=== PATIENT | female | born 1955 | race Hispanic/Latino ===

== ENCOUNTER 2017-05-05 05:48 | Day surgery (SDC) | payer MEDICARE ==
--- NOTE | 2017-05-05 07:26 | Anesthesia Day of Surgery ---
Anesthesia Day of Surgery - Day of Surgery Patient Examined: Yes Patient H&P Reviewed: Yes Patient is NPO: Yes
--- NOTE | 2017-05-05 07:27 | Anesthesia Consultation ---
Anesthesia Consult and Med Hx Date of service: 05/05/17 - Airway Anesthetic Teeth Evaluation: Dentures ROM Head & Neck: Adequate Mental/Hyoid Distance: Adequate Mallampati Class: Class II Intubation Access Assessment: Probably Good - Pulmonary Exam CTA: Yes - Cardiac Exam Cardiac Exam: RRR - Pre-Operative Health Status ASA Pre-Surgery Classification: ASA3 Proposed Anesthetic Plan: MAC - Pulmonary Hx Smoking: Yes Hx Asthma: Yes (hasnt used inhaler in months) - Cardiovascular System Hx Hypertension: Yes (1 year) Hx Coronary Artery Disease: Yes (Carotid Artery stenosis) - Central Nervous System Hx Back Pain: Yes (takes Oxy every day) Hx Psychiatric Problems: Yes - Endocrine Hx Renal Disease: Yes (Stage 1) Hx Non-Insulin Dependent Diabetes: Yes - Hematic Hx Anemia: No - Other Systems Hx Alcohol Use: No Hx Substance Use: No Hx Cancer: No Hx Obesity: Yes
[2017-05-05] MEDS ORDERED: WATER FOR IRRIG STERILE IR ONE (07:30)
[2017-05-05] MEDS ORDERED: DIPRIVAN 10 MG/ML IV ONE (07:33)
--- NOTE | 2017-05-05 07:37 | Discharge Summary ---
Providers - Providers Date of discharge: 05/05/17 Attending physician: MIGUEL MOSQUEDA Hospitalization Condition: Good Procedures: egd Disposition: DC-01 TO HOME OR SELFCARE Core Measure Documentation - Palliative Care Palliative Care/ Comfort Measures: Not Applicable - Core Measures Any of the following diagnoses?: none Exam - Physical Exam Narrative exam: unchanged from pre-op - Constitutional Vitals: Temp Pulse Resp BP Pulse Ox 98.4 F 88 14 122/57 93 05/05/17 07:28 05/05/17 07:28 05/05/17 07:28 05/05/17 07:28 05/05/17 07:28 Plan Activity: no restrictions Weight Bearing Status: Full Weight Bearing Diet: regular Follow up with: JOYA LI [Other] - 7 Days
--- NOTE | 2017-05-05 07:44 | Operative Report ---
Operative Report Operative Report: OPERATIVE REPORT - EGD DATE 05/05/17 SURGERY: Upper endoscopy. SURGEON: Batsheva Bryan M.D. PRE OP DX: dyspepsia POST OP DX: hiatal hernia TYPE OF ANESTHESIA: MAC. ESTIMATED BLOOD LOSS: None. COMPLICATIONS: None. SPECIMENS REMOVED: None. FINDINGS: 1. Small hiatal hernia. 2. Otherwise, normal esophagus, stomach and first portion of duodenum. INDICATIONS:INDICATION FOR PROCEDURE: Patient is a 61-year-old female with a long history of morbid obesity. She is planned to have a weight loss procedure and is here for preoperative planning EGD. PROCEDURE DETAILS: After consent was reviewed, patient was taken back to the operating room where patient was placed in the left lateral decubitus position and a bite block was placed in the mouth. After a time-out was called, MAC anesthesia was initiated. I then passed the endoscope into her oropharynx, into her esophagus, visualized the entire esophagus, which was all within normal limits. I then visualized the stomach and the first portion of the duodenum and there were no abnormalities I could clearly visualize. I then retroflexed the scope in the stomach and visualized the hiatus and I could see a small hiatal hernia. I then desufflated the stomach and removed the endoscope. Patient tolerated procedure well and was transferred to recovery room in good and stable condition.
[2017-05-05] MEDS ORDERED: NACL 0.9% 1000 ML 1,000 ML IV SCH (08:00)
[2017-05-05 08:55] VITALS: BP 113/53
--- NOTE | 2017-05-05 11:45 | Post Anesthesia Evaluation ---
- Post Anesthesia Evaluation Patient Participated: Yes Airway Patent: Yes Stable Respiratory Function: Yes Nausea/Vomiting: No Temp > 96.8F: Yes Pain Manageable: Yes Adequeate Hydration: Yes Anesthesia Complications: No Block Receding Appropriately: Not Applicable Patient on Ventilator: No
== END 2017-05-05 05:49 | disposition home or self-care (01) ==
LOC: GIO 05:48
PROVIDERS: ATTEND Surgery
DX: R10.13 Epigastric pain (principal); K44.9 Diaphragmatic hernia without obstruction or gangrene; E66.01 Morbid (severe) obesity due to excess calories; E11.43 Type 2 diabetes mellitus with diabetic autonomic (poly)neuropathy; I10 Essential (primary) hypertension; I25.10 Atherosclerotic heart disease of native coronary artery without angina pectoris; K31.84 Gastroparesis; J44.9 Chronic obstructive pulmonary disease, unspecified; Z98.890 Other specified postprocedural states; Z98.84 Bariatric surgery status; Z87.891 Personal history of nicotine dependence; Z90.710 Acquired absence of both cervix and uterus; Z90.49 Acquired absence of other specified parts of digestive tract; Z96.659 Presence of unspecified artificial knee joint; Z68.37 Body mass index [BMI] 37.0-37.9, adult; Z88.6 Allergy status to analgesic agent; Z88.2 Allergy status to sulfonamides
CPT/HCPCS: 43235; J2704; J7030

== ENCOUNTER 2017-05-06 08:00 | Inpatient (IN) | payer MEDICARE ==
[~2017-05-06 08:00] MED LIST: WATER FOR IRRIG STERILE IR ONE
[2017-05-06] MEDS ORDERED: NACL BACTERIOSTATIC INFILTRATI ONE (09:54)
[2017-05-06] MEDS ORDERED: APRESOLINE IV PRN (10:16)
[2017-05-06] MEDS ORDERED: REGLAN IV PRN (10:16)
[2017-05-06] MEDS ORDERED: DILAUDID IV PRN ×2 (10:16→10:56)
[2017-05-06] MEDS ORDERED: ZOFRAN IV PRN (10:16)
[2017-05-06] MEDS ORDERED: NORCO PO PRN (10:16)
[2017-05-06] MEDS ORDERED: MORPHINE IV PRN (10:16)
[2017-05-06] MEDS ORDERED: D50W (25GM) Syringe IV PRN (10:22)
[2017-05-06] MEDS ORDERED: XYLOCAINE 1% 20 mL ONE ×2 (10:46→12:01)
[2017-05-06] MEDS ORDERED: MARCAINE-EPI/PF 0.5%-1:200,000 INFILTRATI ONE ×3 (10:47→12:57)
[2017-05-06 10:50] LABS: Basophils % (Auto) 0.5 % (0.0-1.8); Eosinophils % (Auto) 2.3 % (0.0-4.3); Hematocrit 29.1 % (30.3-42.9); Hemoglobin 8.8 gm/dl (10.1-14.3); Mean Corpuscular HGB Conc 30 % (30-34); Platelet Count 278 K/mm3 (140-440); Red Blood Count 4.47 M/mm3 (3.65-5.03); Red Cell Distribution Width 19.1 % (13.2-15.2); White Blood Count 5.2 K/mm3 (4.5-11.0)
[2017-05-06 10:53] LABS: Bacteria,Urine 4+ /HPF (Negative); Bilirubin,Urine NEG (Negative); Blood,Urine NEG (Negative); Ketones,Urine NEG (Negative); Leukocyte Esterase,Urine LG (Negative); Mucus,Urine FEW /HPF; Nitrite,Urine NEG (Negative); Urobilinogen,Urine < 2.0 mg/dL (<2.0)
[2017-05-06 10:54] LABS: Anion Gap 17 mmol/L; BUN/Creatinine Ratio 23; Blood Urea Nitrogen 14 mg/dL (7-17); Carbon Dioxide 28 mmol/L (22-30); Chloride 100.8 mmol/L (98-107); Glucose 131 mg/dL (65-100); Potassium 3.9 mmol/L (3.6-5.0); Sodium 142 mmol/L (137-145)
--- NOTE | 2017-05-06 10:56 | Anesthesia Day of Surgery ---
Anesthesia Day of Surgery - Day of Surgery Patient Examined: Yes Patient H&P Reviewed: Yes Patient is NPO: Yes
--- NOTE | 2017-05-06 10:58 | Anesthesia Consultation ---
Anesthesia Consult and Med Hx Date of service: 05/06/17 - Airway Anesthetic Teeth Evaluation: Dentures, Edentulous ROM Head & Neck: Adequate Mental/Hyoid Distance: Adequate Mallampati Class: Class II Intubation Access Assessment: Probably Good - Pulmonary Exam CTA: Yes - Cardiac Exam Cardiac Exam: RRR - Pre-Operative Health Status ASA Pre-Surgery Classification: ASA3 Proposed Anesthetic Plan: General - Pulmonary Hx Smoking: Yes (quit 12/2016, 1/2 PPD x 40 yrs) Hx Asthma: Yes (hasnt used inhaler in months) COPD: Yes Home Oxygen Therapy: No Hx Sleep Apnea: No - Cardiovascular System Hx Hypertension: Yes Hx Coronary Artery Disease: Yes (Left Carotid Artery stenosis) - Central Nervous System Hx Seizures: Yes (pseudo-seizure, last one 4-5 yrs ago) CVA: Yes (CVA in 2000) Hx Back Pain: Yes (takes Oxy every day) Hx Psychiatric Problems: Yes - Endocrine Hx Renal Disease: Yes (CKD stage 1) Hx Cirrhosis: No Hx Liver Disease: No Hx Non-Insulin Dependent Diabetes: Yes Hx Thyroid Disease: No - Hematic Hx Anemia: No - Other Systems Hx Alcohol Use: No Hx Substance Use: No Hx Cancer: No Hx Obesity: Yes
[2017-05-06 10:59] LABS: Mean Corpuscular Hemoglobin 20 pg (28-32); Mean Corpuscular Volume 65 fl (79-97)
[2017-05-06] MEDS ORDERED: PEPCID IV NR (11:00)
[2017-05-06] MEDS ORDERED: TRANSDERM-SCOP TD SCH (11:00)
[2017-05-06] MEDS ORDERED: LOVENOX SUB-Q NR (11:00)
[2017-05-06] MEDS ORDERED: VERSED IV NR (11:00)
[2017-05-06] MEDS ORDERED: FLAGYL 500 MG/100 ML 500 MG/100 ML BAG IV NR (11:00)
[2017-05-06] MEDS ORDERED: ANCEF/STERILE WATER 2 GM/20 ML 2 GM/20 ML SYRINGE IV NR (11:00)
[2017-05-06] MEDS ORDERED: ANCEF/NS 1 GM/50 ML 1 GM/50 ML BAG IV SCH (11:00)
[2017-05-06] MEDS ORDERED: NACL 0.9% 1000 ML 1,000 ML ONE (11:08)
[2017-05-06] MEDS ORDERED: NOVOLOG SUB-Q SCH (11:30)
[2017-05-06] MEDS ORDERED: NACL 0.9% 1000 ML 1,000 ML IV SCH (12:00)
[2017-05-06] MEDS ORDERED: DIPRIVAN 10 MG/ML IV ONE (12:18)
[2017-05-06] MEDS ORDERED: SUBLIMAZE ONE (12:18)
[2017-05-06] MEDS ORDERED: ePHEDrine SULFATE ONE (12:33)
[2017-05-06] MEDS ORDERED: XYLOCAINE 1% 20 mL INFILTRATI ONE (12:56)
[2017-05-06] MEDS ORDERED: NACL 0.9% IR ONE ×2 (12:56)
[2017-05-06] MEDS ORDERED: ZOFRAN ONE (13:20)
[2017-05-06] MEDS ORDERED: ZEMURON IV ONE (13:20)
[2017-05-06] MEDS ORDERED: XYLOCAINE MPF 2% ONE (13:20)
[2017-05-06] MEDS ORDERED: QUELICIN ONE (13:20)
[2017-05-06] MEDS ORDERED: DECADRON ONE (13:20)
[2017-05-06] MEDS ORDERED: BENADRYL ONE (13:20)
[2017-05-06] MEDS ORDERED: NEO SYNEPHRINE ONE (13:21)
[2017-05-06] MEDS ORDERED: PROAIR IH ONE (13:31)
[2017-05-06] MEDS ORDERED: NORMODYNE IV ONE (13:41)
[2017-05-06] MEDS ORDERED: ROBINUL ONE ×2 (13:42)
[2017-05-06] MEDS ORDERED: NEOSTIGMINE ONE (13:42)
[2017-05-06] MEDS ORDERED: FLAGYL 500 MG/100 ML 500 MG/100 ML BAG IV SCH (14:00)
[2017-05-06] MEDS ORDERED: LYRICA 100 MG PO SCH (14:00)
[2017-05-06] MEDS ORDERED: DILAUDID ONE (14:45)
[2017-05-06] MEDS: TORADOL IV SCH (19:49)
[2017-05-06] MEDS: LYRICA PO SCH (19:50)
[2017-05-06] MEDS: FLAGYL 500 MG/100 ML 500 MG/100 ML BAG IV SCH (19:51)
[2017-05-06] MEDS: ANCEF/NS 1 GM/50 ML 1 GM/50 ML BAG IV SCH (19:51)
[2017-05-06] MEDS: MYLICON PO PRN (19:54)
[2017-05-06] MEDS: LACTATED RINGERS 1,000 ML IV SCH (19:55)
[2017-05-06] MEDS ORDERED: QUETIAPINE 25 MG PO SCH (22:00)
[2017-05-06] MEDS ORDERED: AZELASTINE HCL InNostril SCH (22:00)
--- NOTE | 2017-05-06 22:57 | Operative Report ---
Operative Report Operative Report: Operative Report DATE OF PROCEDURE: 05/06/17 SURGEON: Batsheva Bryan M.D. CLIPPER AND TURNER: Thiago Georges CSA PREOPERATIVE DIAGNOSIS: Morbid obesity. POSTOPERATIVE DIAGNOSES: Morbid obesity PROCEDURES PERFORMED: 1. Laparoscopic gastric bypass. 2. EGD. ANESTHESIA: General endotracheal tube intubation. SPECIMENS: None. ESTIMATED BLOOD LOSS: Less than 10 mL. FINDINGS: Normal anatomy. COMPLICATIONS: None. INDICATION: is a 61-year-old female with history of morbid obesity, history of diabetes, htn, copd. She signed informed consent and expressed understanding of risks and benefits. DESCRIPTION OF PROCEDURE: Patient was brought to the OR suite, laid in supine position. Bilateral lower extremity SCDs were placed. General anesthesia was induced via successful endotracheal tube intubation. Patient's abdomen was prepped and draped in sterile fashion. Using Optiview technique, a 12-mm trocar was placed into the abdominal cavity under direct vision. There was noted to be no gross injury to any intraabdominal structures. 4 working trocars were placed under direct visualization, 12 mm in the right mid abdomen mid clavicular line and three 5-mm trocars in the right upper quadrant, epigastric, left upper quadrant. At this time, the ligament of Treitz identified and followed down approximately 30 cm and the jejunum was transected. The distal segment of jejunum was then traced for approximately 75 cm and a stable [id number] jejunojejunostomy was performed. The common enterotomy was closed with 2 firings of the endoscopic stapler. The mesenteric defect was closed with running Surgidac suture. This anastomosis was found to be patent without kink, obstruction or bleeding. At this time, the patient was placed in steep reverse Trendelenburg position. A liver retractor was placed through the epigastric port to elevate the left lateral lobe of the liver. While retracting the omentum from the spleen, there was a small denuding of the splenic capsule that resulted in some venous oozing. Surgicel snow and bebeto were used to control the bleeding without incident. A small gastric pouch was formed. The Bethany limb was then brought in an antegastric antecolic fashion and secured with 2 stay sutures to the gastric pouch. After this, the enterotomies were made with Harmonic scalpel, and a [id number]-[id number] stapled gastrojejunostomy was performed with a mechanical stapler. After this, a 2-layer running closure using absorbable v-lock suture were done, the first being mucosal approximation prior to completion of the first layer. The anesthesia passed and an EGD scope beyond the anastomosis to act as a stent. The first layer was completed, the second was then performed. After this, the EGD was retracted slightly. A bowel clamp was placed in a proximal Bethany limb. The anastomosis was submerged under saline. Via intraluminal EGD insufflation, there was noted be no bubbles in the saline indicating an airtight anastomosis. There was noted to be no obstruction or bleeding intraluminally in the pouch or the anastomosis. At this time, the scope was removed. The saline was aspirated. Tiseel was placed over the anastomosis. All trocars were removed under direct visualization and the abdomen was then desufflated. The skin incisions were closed with 4-0 Monocryl followed by Dermabond dressings. Patient was awoken and taken to recovery in stable condition. All counts were correct.
[2017-05-07] MEDS: ANCEF/NS 1 GM/50 ML 1 GM/50 ML BAG IV SCH (03:06)
[2017-05-07] MEDS: FLAGYL 500 MG/100 ML 500 MG/100 ML BAG IV SCH ×2 (03:07→10:43)
[2017-05-07] MEDS: TORADOL IV SCH ×2 (04:19→10:39)
[2017-05-07] MEDS: LACTATED RINGERS 1,000 ML IV SCH ×2 (04:21→12:56)
[2017-05-07 04:51] LABS: Basophils % (Auto) 0.1 % (0.0-1.8); Hematocrit 31.7 % (30.3-42.9); Hemoglobin 9.7 gm/dl (10.1-14.3); Mean Corpuscular HGB Conc 31 % (30-34); Platelet Count 326 K/mm3 (140-440); Red Blood Count 4.74 M/mm3 (3.65-5.03); Red Cell Distribution Width 19.4 % (13.2-15.2); White Blood Count 9.3 K/mm3 (4.5-11.0)
[2017-05-07 04:58] LABS: Alanine Aminotransferase 24 units/L (7-56); Albumin 4.4 g/dL (3.9-5); Albumin/Globulin Ratio 1.9 %; Alkaline Phosphatase 47 units/L (35-129); Anion Gap 23 mmol/L; BUN/Creatinine Ratio 23; Blood Urea Nitrogen 14 mg/dL (7-17); Calcium 9.3 mg/dL (8.4-10.2); Carbon Dioxide 23 mmol/L (22-30); Chloride 100.2 mmol/L (98-107); Glucose 235 mg/dL (65-100); Sodium 141 mmol/L (137-145); Total Protein 6.7 g/dL (6.3-8.2)
[2017-05-07 04:59] LABS: Potassium 4.7 mmol/L (3.6-5.0)
[2017-05-07 05:30] LABS: Mean Corpuscular Hemoglobin 20 pg (28-32); Mean Corpuscular Volume 67 fl (79-97)
[2017-05-07] MEDS ORDERED: PROVENTIL IH PRN (09:33)
[2017-05-07] MEDS ORDERED: COZAAR PO SCH (10:00)
[2017-05-07] MEDS ORDERED: LOVENOX SUB-Q SCH (10:00)
[2017-05-07] MEDS ORDERED: NON-FORMULARY (Losartan 50 MG) PO SCH (10:00)
[2017-05-07] MEDS ORDERED: DALIRESP 500 MG PO SCH (10:00)
[2017-05-07] MEDS: MYLICON PO PRN (10:40)
[2017-05-07] MEDS: LYRICA PO SCH ×2 (10:41→14:35)
[2017-05-07 12:16] VITALS: BP 177/73
--- NOTE | 2017-05-07 13:43 | Discharge Summary ---
Providers - Providers Date of Admission: 05/06/17 08:16 Date of discharge: 05/07/17 Attending physician: MIGUEL MOSQUEDA Primary care physician: PACKAGE SEALER MACHINE Hospitalization Reason for admission: s/p gastric bypass Condition: Good Procedures: lap gastric bypass Hospital course: Pt was admitted after a non eventful lap gastric bypass. She remained stable and afebrile overnight. She is tolerating liquids and ambulating without difficulty. She was discharged to home with no clinical signs of leak or bleeding. Disposition: DC-01 TO HOME OR SELFCARE Core Measure Documentation - Palliative Care Palliative Care/ Comfort Measures: Not Applicable - Core Measures Any of the following diagnoses?: none Exam - Constitutional Vitals: Temp Pulse Resp BP Pulse Ox 97.8 F 103 H 20 177/73 96 05/07/17 12:15 05/07/17 12:15 05/07/17 12:15 05/07/17 12:15 05/07/17 09:31 General appearance: Present: no acute distress - EENT Eyes: Present: PERRL - Respiratory Respiratory effort: normal - Abdominal General gastrointestinal: Present: soft, other (appropriatley tender to palpation, incison c/d/i) - Integumentary Integumentary: Present: warm Plan Diet: other (sugar free clear liquids) Wound: open to air Follow up with: PRIMARY CAREMD [Primary Care Provider] - 7 Days
== END 2017-05-07 15:15 | disposition home or self-care (01) | DRG 621 ==
LOC: 3A 08:16 → 3B-SURG 15:25
PROVIDERS: ADMIT Surgery; ATTEND Surgery
PROC: 0D168ZA Bypass Stomach to Jejunum, Via Natural or Artificial Opening Endoscopic (ICD-10-PCS; principal; 2017-05-06)
DX: E66.01 Morbid (severe) obesity due to excess calories (principal); N39.3 Stress incontinence (female) (male); J45.909 Unspecified asthma, uncomplicated; K31.84 Gastroparesis; E11.43 Type 2 diabetes mellitus with diabetic autonomic (poly)neuropathy; Z68.37 Body mass index [BMI] 37.0-37.9, adult; J44.9 Chronic obstructive pulmonary disease, unspecified; Z71.3 Dietary counseling and surveillance; Z88.8 Allergy status to other drugs, medicaments and biological substances; Z88.2 Allergy status to sulfonamides; Z88.6 Allergy status to analgesic agent; Z98.891 History of uterine scar from previous surgery; Z90.710 Acquired absence of both cervix and uterus; Z90.49 Acquired absence of other specified parts of digestive tract
CPT/HCPCS: 36415; 80048; 80053; 81001; 82962; 84132; 85025; 86850; 86900; 86901; 87086; A4217; C9250; J0330; J0690; J1100; J1170; J1200; J1650; J1815; J1885; J2250; J2270; J2370; J2405; J2704; J2710; J2765; J3010; J7030; J7120